=== PATIENT | male | born 1950 ===

== ENCOUNTER 2016-07-04 00:24 | Emergency (ER) | payer OTHER ==
[2016-07-04] MEDS ORDERED: Adacel (T-DAP) 0.5 ML VIAL ONE (01:16)
--- NOTE | 2016-07-04 14:15 | CT ---
PRELIMINARY REPORT/[facility]/EMERGENCY AFTER HOURS PROCEDURE: EXAM: CT Head Without Intravenous Contrast CLINICAL HISTORY: 65 years old, male; Injury or trauma; Fall; Initial encounter; Concussion / head injury and lacerati on; Consciousness not specified; Without residual foreign body; Forehead; Injury date: 07/03/16; Injur y details: Mechanism of injury fall, from standing, alcohol use associated with this incident, fell on trail found by friend conscious pt unsure how it happened. ; Patient HX: Patient fell and hit hea d on rocks. Large lac to left side of forehead. Pt is now complaining of weird feelings in both hand s. He states he cannot make a fist. TECHNIQUE: Axial computed tomography images of the head/brain without intravenous contrast. EXAM DATE/TIME: 07/04/2016 12:45 AM COMPARISON: No relevant prior studies available. FINDINGS: Brain: Decreased attenuation of the supratentorial white matter is likely secondary to chronic micro vascular ischemia. Brainstem: 3 mm mildly hyperdense focus involving the left brandon. Ventricles: Ventricular and subarachnoid spaces are age appropriate. Bones/joints: Postoperative change involving the left mandible, incompletely visualized. No acute fr acture. Soft tissues: Left anterior frontal scalp soft tissue injury. Vasculature: Intracranial vascular calcification. Sinuses: Unremarkable as visualized. No acute sinusitis. Mastoid air cells: Unremarkable as visualized. No mastoid effusion. IMPRESSION: 3 mm mildly hyperdense focus involving left brandon. Possible artifact or small area of calcification, tiny petechial hemorrhage considered less likely however not excluded. Followup as clinically nacho barros. Thank you for allowing us to participate in the care of your patient. Dictated and Authenticated by: Gaetano Palacios MD 07/04/2016 1:00 AM Central Time ([place] \T\ [place]) FINAL REPORT CT BRAIN WITHOUT CONTRAS: Date: 07/04/[address] was performed for evaluation of trauma. FINDINGS: The ventricles are normal in size for age and atrophy. There is some patchy hypolucency in the deep white matter suggestive of chronic ischemic changes. Some more localized atrophy seems to be present in the left side of the cerebellum and this could be referable to a prior stroke here. On one scan, there is a tiny, 3.0 mm, hyperdense focus in the left side of the brandon. This could be a small calci fication, artifact, and much less likely a tiny petechial hemorrhage. Correlate with current clinica l symptoms. No intracranial bleeding or extra-axial hematoma was seen otherwise. There is no sign of mass, edema, or acute stroke. The calvarium appears intact. There is no air fluid level of the sphe noid sinus and the mastoid air cells are clear. IMPRESSION: 1. No definite acute intracranial findings. 2. Mild atrophy and chronic ischemic change. There may have been an old stroke involving the left c erebellum. 3. Tiny hyperdense focus in the left side of the brandon. See comments above. Report in agreement with preliminary reading by [facility]. POS: HOME
--- NOTE | 2016-07-04 14:18 | CT ---
PRELIMINARY REPORT/[facility]/EMERGENCY AFTER HOURS PROCEDURE: EXAM: CT Cervical Spine Without Intravenous Contrast CLINICAL HISTORY: 65 years old, male; Injury or trauma; Fall; Initial encounter; Laceration; Without foreign body; Inj ury date: 07/03/16; Injury details: Mechanism of injury fall, from standing, alcohol use associated wi th this incident, fell on trail found by friend conscious pt unsure how it happened. ; Patient HX: P t fell and hit head on rocks. Pt now complaining of bilateral hand numbness and pain. TECHNIQUE: Axial computed tomography images of the cervical spine without intravenous contrast. Coronal and sagittal reformatted images were created and reviewed. EXAM DATE/TIME: 07/04/2016 1:36 AM COMPARISON: No relevant prior studies available. FINDINGS: Vertebrae: Trace retrolisthesis of C3 on C4 and C5 on C6. Moderate degenerative change about the den s. Moderate prevertebral osteophytosis. There are bilateral facet joint degenerative changes. No acute fracture. Discs/spinal canal/neural foramina: Severe central canal stenosis at C3-C4, C4-C5 and C5-C6. Moderate to severe central canal stenosis at C6-C7. Multilevel high-grade cervical foraminal stenose s. Soft tissues: Unremarkable. Lung apices: No apical pneumothorax. IMPRESSION: No acute fracture. Multilevel severe degenerative change. Thank you for allowing us to participate in the care of your patient. Dictated and Authenticated by: Gaetano Palacios MD 07/04/2016 1:57 AM Central Time ([place] \T\ [place]) FINAL REPORT CT OF THE CERVICAL SPINE: Date: 07/04/[address] of the cervical spine was performed following trauma. Axial slices were acquired, then cor onal and sagittal reconstructions were done. FINDINGS: No fractures were appreciated. There was some minimal retrolisthesis of C3 on C4, which is probably not significant. Disc space narrowing is present at all cervical levels from C2 and below. The preve rtebral soft tissues show no thickening. The C1 to dens distance is normal. There is slight asymmetr y of the lateral masses of C1 as they sit on C2, but this is probably due to positioning. No fractur e was seen. Findings by level follow: C1-C2: No acute findings. C2-C3: Prominent left facet arthritis with moderate left foraminal narrowing and some impingement on the le ft lateral recess by osteophyte. C3-C4: A disc osteophyte complex posteriorly causes significant spinal stenosis with an AP canal diameter o f about 8 mm. There is mild bilateral foraminal stenosis and mild facet arthritis bilaterally. C4-C5: Moderate bilateral foraminal stenosis. Right facet arthritis. Central canal stenosis is severe with a 7.0 mm AP diameter to the spinal canal due to disc osteophyte complexes. C5-C6: There is severe bilateral foraminal stenosis, right greater than left. Central canal stenosis is pre sent and is severe with a 7.0 mm AP diameter canal. C6-C7: Severe right foraminal stenosis and moderate left foraminal stenosis. AP diameter of the canal at th is level is about 9.0 mm. C7-T1: No acute findings. T1-T2: No acute findings. Lung apices are clear and show no pneumothorax. IMPRESSION: 1. No evidence for fracture. 2. Multilevel degenerative disc disease with prominent osteophytosis. Multilevel foraminal narrowin g. 3. Severe central canal stenosis at C3-C4, C4-C5, and C5-C6. Moderate central canal stenosis at C6- C7. Report in agreement with preliminary reading by [facility]. POS: HOME
== END 2016-07-04 02:09 | disposition home or self-care (01) ==
LOC: BURERS 00:24
DX: S09.90XA Unspecified injury of head, initial encounter (principal); S51.812A Laceration without foreign body of left forearm, initial encounter; W19.XXXA Unspecified fall, initial encounter
CPT/HCPCS: 12013; 70450; 72125; 90471; 90715